=== PATIENT | female | born 1995 | race Two or more races ===

== ENCOUNTER 2025-03-24 15:03 | Inpatient (IN) | payer MEDICAID, SELFPAY ==
[2025-03-24] VITALS (8 sets, daily range): BP systolic 109–117; BP diastolic 66–77; PULSE 84–107; RESP 16–99; TEMP 36.8–37.1; BMI 25.4
[2025-03-24 15:38] LABS: ROM Kit Lot # 58106258; ROM Swab Mixed By: SAUCT; Rupture of Fetal Membranes Positive (Negative); Swb Mxed in Solvent 1 min? Yes
[2025-03-24 16:31] LABS: Basophils # (Auto) 0.1 Thou/mm3 (0.0-0.2); Basophils % (Auto) 0 % (0-2.5); Eosinophils # (Auto) 0.0 Thou/mm3 (0.0-0.5); Eosinophils % (Auto) 0 % (0-10); Hematocrit 40.6 % (36.0-46.0); Hemoglobin 13.1 g/dL (12.0-16.0); Immature Granulocytes Auto 0.07 Thou/mm3 (0.00-0.00); Lymphocytes # (Auto) 2.1 Thou/mm3 (1.0-4.8); Lymphocytes % (Auto) 16 % (10-50); Mean Corpuscular HGB Conc 32.3 g/dl (31.0-37.0); Mean Corpuscular Hemoglobin 27.6 pg (25.0-35.0); Mean Corpuscular Volume 86 fL (80-100); Monocytes # (Auto) 0.6 Thou/mm3 (0.0-0.8); Monocytes % (Auto) 4 % (0-12); Neutrophils # (Auto) 10.2 Thou/mm3 (1.8-7.7); Neutrophils % (Auto) 78 % (37-80); Nucleated Red Blood Cell # 0.00 Thou/mm3 (0.00-0.00); Nucleated Red Blood Cell % 0 /100 WBC (0); Platelet Count 229 Thou/mm3 (140-440); RDW Standard Deviation 47.8 fL (36.4-46.3); Red Blood Count 4.75 Miln/mm3 (4.00-5.20); White Blood Count 13.0 Thou/mm3 (3.6-11.0)
[2025-03-24 17:09] LABS: Syphilis Nonreactive (Nonreactive)
--- NOTE | 2025-03-24 21:07 | PD.LDHP ---
Documentation for date of: 03/24/25 OB Labor/Induct. HPI History of Present Illness History of present illness: H and P dictated in Nuance on the STAT line #9: [id number] History of Present Adequate Care: Yes Labs Labs: Positive: Rubella Titre, Negative: RPR, Hepatitis B, HIV, Chlamydia, Gonorrhea and Group Beta Strep and Unknown: Herpes Type 1, Herpes Type 2 and Covid-19 Meds Home Medications and Allergies Home Medications ?Medication ?Instructions ?Recorded ?Confirmed ?Type vits no.130-ferrous fum 1 tab PO QDAY 03/24/25 03/24/25 History 27 mg iron-folic acid 800 mcg tablet ( Vitamin) Allergies Allergy/AdvReac Type Severity Reaction Status Date / Time No Known Allergies Allergy Unverified 03/24/25 17:07 OB Exam Physical Exam Vital signs: Temp Pulse Resp BP 98.7 F 90 16 109/70 03/24/25 19:47 03/24/25 19:29 03/24/25 19:47 03/24/25 19:29 OB Results Labs 03/24/25 16:00 Labs: Short CBC 03/24/25 Range/Units 16:00 WBC 13.0 H (3.6-11.0) Thou/mm3 Hgb 13.1 (12.0-16.0) g/dL Hct 40.6 (36.0-46.0) % Plt Count 229 (140-440) Thou/mm3
[2025-03-24 22:01] LABS: Amphetamine/Metham Scrn,Ur OB Negative (Negative); Benzoylecgonine Screen, Ur OB Negative (Negative); Opiate Screen,Urine OB Negative (Negative); THC Screen,Urine OB Negative (Negative)
[2025-03-25] VITALS (229 sets, daily range): BP systolic 97–145; BP diastolic 56–84; PULSE 66–169; RESP 16–19; TEMP 36.7–37.3; O2SAT 85–100
[2025-03-25] MEDS: Ampicillin Inj 2,000 MG in SODIUM CHLORIDE 0.9% (POP) 100 ML 100 MG IV ×4 (01:07→18:26)
[2025-03-25] MEDS: fentaNYL CIT INJ 50 mCg/ML AMP 2ML 100 MCG IVP ×5 (01:33→10:53)
[2025-03-25] MEDS: GENTAMICIN/NS 80 MG IVPB 80 MG in PRE-MIXED 1 BAG 50 MG IV ×3 (01:45→17:44)
[2025-03-25] MEDS: RINGERS LACTATED 1000 ML 1,000 ML 100 ML IV (12:31)
[2025-03-25] MEDS: OXYTOCIN in NS 30 units 30 UNIT/500 ML BAG IV (13:46)
--- NOTE | 2025-03-25 14:35 | PD.LDPN ---
Documentation for date of: 03/25/25 OB Labor Progress Note Pain Control Comments: Epidural Pelvic Exam Dilation (cm): 7 Effacement (%): 100 station: 0 Amniotic membrane status: Ruptured Comments: Forebag ruptured at approximately 0830 clear fluid noted. Contractions Monitor mode: External Contraction frequency: 6-8 Contraction intensity: Strong Status status: Category l Assessment and Plan Comments: Inadequate uterine contractions: Piitocin augmentation Amp/Gent for prolonged rupture of membranes although no signs of chorioamnionitis. Anticipate . History of Present Illness HPI
--- NOTE | 2025-03-25 17:06 | PD.LDPN ---
Documentation for date of: 03/25/25 OB Labor Progress Note Pain Control Comments: Epidural Pelvic Exam Dilation (cm): 9 Effacement (%): 100 station: +1 Amniotic membrane status: Ruptured Comments: Per RN exam Contractions Monitor mode: Internal Contraction frequency: 1.5-5 Contraction intensity: Strong Status status: Category l Assessment and Plan Comments: With Pitocin augmentation we have seen cervical change with descent of the head however contraction pattern is still irregular She remains afebrile and is not tachycardic: No signs of chroioamnionitis. Anticipate . History of Present Illness HPI
[2025-03-25] MEDS: MINERAL OIL 30 ML UDC TOP (22:16)
[2025-03-25] MEDS: TRANEXAMIC ACID 1,000 MG IVPB 1,000 MG/100 ML BAG 200 MG IV (22:34)
[2025-03-25] MEDS: OXYTOCIN in NS 20 units 20 UNIT/1,000 ML BAG 125 UNIT IV (22:34)
[2025-03-25] MEDS: LIDOCAINE HCL 1% 20 ML VIAL INFL (22:40)
[2025-03-25] MEDS: BENZO/LANO/ALOE (Dermoplast) 60 GM CAN 1 SPRAY TOP (23:00)
[2025-03-25] MEDS: IBUPROFEN TAB 400 MG TABLET 800 MG PO (23:08)
[2025-03-26] VITALS (8 sets, daily range): BP systolic 102–128; BP diastolic 49–85; PULSE 66–99; RESP 14–19; TEMP 36.8–37.3; O2SAT 98
[2025-03-26] MEDS: HYDROcodone/APAP 5/325 TABLET 1 TAB PO ×2 (04:00→12:46)
[2025-03-26 06:46] LABS: Basophils # (Auto) 0.1 Thou/mm3 (0.0-0.2); Basophils % (Auto) 0 % (0-2.5); Eosinophils # (Auto) 0.0 Thou/mm3 (0.0-0.5); Eosinophils % (Auto) 0 % (0-10); Hematocrit 32.5 % (36.0-46.0); Hemoglobin 10.7 g/dL (12.0-16.0); Immature Granulocytes Auto 0.18 Thou/mm3 (0.00-0.00); Lymphocytes # (Auto) 2.3 Thou/mm3 (1.0-4.8); Lymphocytes % (Auto) 11 % (10-50); Mean Corpuscular HGB Conc 32.9 g/dl (31.0-37.0); Mean Corpuscular Hemoglobin 28.5 pg (25.0-35.0); Mean Corpuscular Volume 86 fL (80-100); Monocytes # (Auto) 1.5 Thou/mm3 (0.0-0.8); Monocytes % (Auto) 7 % (0-12); Neutrophils # (Auto) 16.6 Thou/mm3 (1.8-7.7); Neutrophils % (Auto) 81 % (37-80); Nucleated Red Blood Cell # 0.00 Thou/mm3 (0.00-0.00); Nucleated Red Blood Cell % 0 /100 WBC (0); Platelet Count 178 Thou/mm3 (140-440); RDW Standard Deviation 49.3 fL (36.4-46.3); Red Blood Count 3.76 Miln/mm3 (4.00-5.20); White Blood Count 20.6 Thou/mm3 (3.6-11.0)
--- NOTE | 2025-03-26 08:22 | ESPR_ITS ---
RE: VARSHA HAMILTON : 1995 DATE OF SERVICE: 03/26/2025 SUBJECTIVE: day #1. Patient denies any problem or complaints. She is voiding. She is ambulating. She is tolerating diet. She is passing flatus. She denies any excessive vaginal bleeding. She denies any dizziness or lightheadedness. She denies any chest pain, palpitations, shortness of breath, or lower extremity pain. OBJECTIVE: Vital Signs: Blood pressure 112/72, heart rate 99, respirations 16, temperature is 99.2, pulse oximetry is 98% on room air. Lungs: Clear to auscultation bilaterally. Heart: Regular rate and rhythm. Abdomen: Fundus is firm, nontender. Extremities: Nontender. LABORATORY DATA: Hemoglobin pre-delivery is 13.1. Post-delivery is 10.7. ASSESSMENT: day #1 status post spontaneous vaginal delivery. PLAN: Encourage ambulation. support. Encourage fluid intake. Possible discharge home tomorrow. DT: 07:55:42 TT: 08:20:00 Ref: [id number] - TID: [id number]
--- NOTE | 2025-03-26 08:23 | PD.LDDELS ---
Data ([facility]) Data Hx Section: No : 2 Term: 0 : 0 Livin Abortions: Spontaneous & Theraputic: 0 Delivery Data ([facility]) Labor Data Initiation of labor: Spontaneous Induction/Augmentation Agent: Pitocin ROM date: 03/24/25 ROM time: 08:00 Amniotic membrane rupture type: Spontaneous Amniotic fluid description: Clear Delivery Data EDC: 03/29/25 EDC calculated by:: LMP/early US confirmation Onset of labor date: 03/25/25 Onset of labor time: 03:50 Complete dilation date: 03/25/25 Complete dilation time: 18:26 [place] delivery date: 03/25/25 delivery time: 22:27 Gestational age (weeks): 39 Gestational age (days): 3 Placenta delivery date: 03/25/25 Placenta delivery time: 22:32 Stage 1 total time: Labor - Stage 1 Duration 14 hours and 36 minutes Delivered by: Gordo Rangel Delivery nurse: Shaina Argueta RN, Kailyn Chaparro RN [place] nurse: Pat Woo RN Quantitative Researcher at delivery: No Support person(s) at delivery: FOB, mother of pt Other staff at delivery: Winnie Espinoza RN Delivery Method Delivery method: Normal Vaginal Delivery Presentation: Vertex Anesthesia Type Anesthesia Type: Epidural Placenta Placenta delivery description: Spontaneous Cord blood sent to lab: Yes cord blood collection: Cord Blood Type Episiotomy Episiotomy description: None Lacerations #1: Perineal: 3rd degree (Partial) Perineal repair Sutures used for repair: other (0 chronic for spincter capsule and 2-0 chronic for perineal repair.) EBL Estimated blood loss (ml): 200 Umbilical Cord cord description: 3 Vessels Additional Procedures None Complications Complications: None [place] Data ([facility]ano) Data order: 1 [place]'s gender: Male Identification band number: [id number] weight (gms): 7 lb 5.815 oz Weight (pounds): 7 lbs and 5.8 ozs 1 minute: 8 5 minutes: 9
--- NOTE | 2025-03-26 08:25 | PD.LDDS ---
DS: Providers Provider Date of admission: 03/24/25 16:01 Primary care physician: Physician No Primary/Family Admitting Provider: Gordo Rangel MD Attending Provider on Admission: Gordo Rangel MD Consults: 03/26/25 01:10 Referral Routine Comment: Attending Provider on DC: Gordo Rangel MD Discharging Provider: Gordo Rangel MD DS: Diagnosis Problem List Completed Was Problem List Reviewed/Reconciled?: Yes Summary/Hosp Course Brief History: Peripartum Data Delivery Method: Normal Vaginal Delivery Episiotomy Description: None Time Spent with Patient Time attestation: Total time spent providing and/or coordinating discharge services: Exam Vital Signs Temp Pulse Resp BP Pulse Ox O2 Del Method 99.2 F 99 16 112/72 98 Room Air 03/26/25 03:33 03/26/25 03:33 03/26/25 03:33 03/26/25 03:33 03/26/25 03:33 03/26/25 03:33 Discharge Plan Plan Patient Disposition: HOME (Self Care) Patient condition on transfer: Stable Prescriptions/Referrals Prescriptions/Med Rec: New ibuprofen 600 mg tablet 600 mg PO Q6H PRN (Reason: pain) Qty: 30 0RF docusate sodium 100 mg capsule 100 mg PO BID PRN (Reason: constipation) Qty: 30 0RF Continued Vitamin 27 mg iron- 800 mcg tablet 1 tab PO QDAY Patient Comments: TAKE 1 TABLET BY MOUTH EVERY DAY Referrals: No Primary/Family,Physician [Primary Care Provider] Patient/Caregiver Discharge Instructions Discharge Activity: activity as tolerated Other Discharge Activity Instructions:: Follow up office 6 wks Print Language: [place] Stand Alone Forms: [place] Award Info., Patient Portal Info Letter Discharge Order Discharge Orders: Discharge (Routine); Ordered 03/27/25 Ordered By: Gordo Rangel Planned Discharge Date 03/27/25
[2025-03-26] MEDS: IBUPROFEN TAB 400 MG TABLET 800 MG PO ×2 (08:49→18:24)
--- NOTE | 2025-03-26 08:56 | ESHP_ITS ---
RE: VARSHA HAMILTON : 1995 DATE OF ADMISSION: 03/24/2025 This is a 30-year-old 2, para 0-0-1-0 with due date of 03/29 with intrauterine at 39 weeks and 2 days who presents to labor and delivery complaining of contractions and concern for possible early labor. The patient had uncomplicated care other than mild iron deficiency anemia. She reports normal movement. She denies any bleeding. ALLERGIES: NO KNOWN DRUG ALLERGIES. MEDICATIONS: 1. multivitamin 1 p.o. daily. 2. Ferrous sulfate 325 mg 1 p.o. daily. PAST MEDICAL HISTORY: Iron deficiency anemia. SOCIAL HISTORY: She denies any alcohol drug use or smoking. PAST SURGICAL HISTORY: D and C at 9 weeks gestation in 2022 for prior use of oral abortifacient. Past surgical history of DNC in 2022. REVIEW OF SYSTEMS: She denies any chest pain, palpitations, cough, fever, shortness of breath or lower extremity pain. She denies any headache, change in vision or right upper quadrant pain. FAMILY HISTORY: Denies. PHYSICAL EXAMINATION: VITAL SIGNS: Blood pressure 125/72, heart rate 88, respirations 18, temperature 98.6. HEENT: Oropharynx and sclerae clear. LUNGS: Clear to auscultation bilaterally. HEART: Regular rate and rhythm. ABDOMEN: Gravid term size consistent with estimated weight 7.5 pounds. PELVIC: See RN notes. EXTREMITIES: Nontender. SKIN: No gross rashes or lesions. NEUROLOGIC: No focal deficit. ASSESSMENT AND PLAN: Intrauterine at 39 weeks and 2 days early labor versus false labor. PLAN: Monitor for progression of labor, if progresses we will admit. The patient was made aware of the risk, complication, alternative and benefits of operative, vaginal delivery and delivery and agrees with these modes of delivery if indicated. DT: 15:23:35 TT: 16:36:00 Ref: [id number] - TID: [id number]
--- NOTE | 2025-03-26 10:30 | PC.SS ---
CLOTH DYE RANGE OPERATOR conducted bedside contact with the patient to address nursing referral indicating patient was late to care at 18 weeks.? CLOTH DYE RANGE OPERATOR introduced self and role.? At bedside with patient was SABAS, Rodriguez Serra.? Patient gave permission for FOB to be present during discussion.? CLOTH DYE RANGE OPERATOR reviewed basis of referral.? Patient confirmed late to care (18 weeks) due to shortage of providers.? Patient stated difficulty with obtaining appointment prior to 12 week timeframe.? Patient received OB services from Dr. Rangel.? Patient reports consistency with appointments once OB services were established.? Infant, Haley; is the patient?s first child.? delivered naturally.? Patient is receiving WIC.? Patient to apply for SNAP and TANF.? Patient denies history of alcohol/drug abuse.? Patient denies CWS intervention.? Patient denies episodes of domestic violence.? Patient denies possessing a history of mental health, reports no current possession of depression or anxiety.? Patient has access to appropriate supplies and equipment; to include a car seat.? FOB will provide transportation upon discharge.? Patient describes possessing support system consisting of parents and extended family.? CLOTH DYE RANGE OPERATOR provided the patient with community resources to include [employer] and Warm Line.? No further intervention required at this time, public health social worker will be available to address any further concerns.? CLOTH DYE RANGE OPERATOR updated bedside nurse.?
[2025-03-27 03:50] VITALS: BP 111/67; PULSE 70; RESP 16; TEMP 36.9; O2SAT 96
--- NOTE | 2025-03-27 07:33 | PD.LDPPPRG ---
Subjective Subjective Interval history: Patient denies any problem complaint. She is voiding and ambulating and tolerating a regular diet. She denies any excessive vaginal bleeding. She is passing flatus and she has had a bowel movement. She denies any chest pain palpitations cough fever flank pain shortness of breath, lower abdominal pain or lower extremity pain or swelling Exam Vital Signs Temp Pulse Resp BP Pulse Ox O2 Del Method 98.4 F 70 16 111/67 96 Room Air 03/27/25 03:50 03/27/25 03:50 03/27/25 03:50 03/27/25 03:50 03/27/25 03:50 03/27/25 03:50 Routine Respiratory Exam Comments: Clear to auscultation bilaterally Routine Cardiovascular Exam Comments: Regular rate and rhythm Routine Abdominal Exam Comments: Fundus is firm and nontender Routine Extremities Exam Comments: Nontender or edema Objective Labs 03/26/25 04:38 Impressions Impression: day #2 Status post spontaneous vaginal delivery Partial third-degree perineal laceration Discharge home Discharge instructions given Advised to take stool softener for at least 7 days to avoid straining with bowel movements Follow-up in the office in 6 weeks Assessment & Plan Time Spent With Patient Time: Total time spent is greater than 50% in coordination of care (as documented) at patient's floor/unit and/or counseling patient:
[2025-03-27 08:20] VITALS: BP 128/87; PULSE 82; RESP 14; TEMP 36.7; O2SAT 96
[2025-03-27] MEDS: IBUPROFEN TAB 400 MG TABLET 800 MG PO (08:29)
== END 2025-03-27 13:15 | disposition home or self-care (01) | DRG 542 ==
LOC: S4SX 03-26 05:59 → S4NX 03-26 05:59
PROVIDERS: Admitting Provider Specialist; Visit Provider Specialist
DX: O42.90 Premature rupture of membranes, unspecified as to length of time between rupture and onset of labor, unspecified weeks of gestation (principal); Z37.0 Single live birth; O70.20 Third degree perineal laceration during delivery, unspecified
CPT/HCPCS: 36415; 59025; 59409; 80307; 84112; 85025; 86780; 86850; 86900; 86901; 94762; J0290; J1580; J2590; J2795; J3010; J3490; J7120; S0191; A9270